=== PATIENT | male | born 1980 | race American Indian/Alaskan Native ===

== ENCOUNTER 2016-06-13 14:16 | Emergency (ER) | payer OTHER ==
[2016-06-13] MEDS ORDERED: NACL 0.9% 1000 ML 1,000 ML IV ONE (15:22)
[2016-06-13] MEDS ORDERED: ZOFRAN IV ONE (15:22)
[2016-06-13] MEDS ORDERED: TORADOL IV ONE (15:22)
--- NOTE | 2016-06-13 15:28 | Emergency Department Report ---
ED Abdominal Pain HPI - General Chief Complaint: Upper Respiratory Infection Stated Complaint: N/V/D Time Seen by Provider: 06/13/16 15:15 Source: patient Mode of arrival: Ambulatory Limitations: No Limitations - History of Present Illness Initial Comments: Pt reports abdominal cramping, n/v/d, and chills x 3 days. No URI sx. Reports generalized body aches. MD Complaint: abdominal pain -: days(s) (3) Location: diffuse Migration to: no migration Quality: cramping Consistency: constant Improves With: nothing Worsens With: nothing Associated Symptoms: nausea, vomiting, diarrhea, chills - Related Data Previous Rx's Medication Instructions Recorded Last Taken Type Dicyclomine [Bentyl] 20 mg PO TID #15 tablet 06/13/16 Unknown Rx Promethazine [Phenergan TAB] 25 mg PO Q6HR PRN #14 tab 06/13/16 Unknown Rx Allergies Allergy/AdvReac Type Severity Reaction Status Date / Time kiwi AdvReac Swelling Verified 04/13/15 16:46 ED Review of Systems ROS: Stated complaint: N/V/D Other details as noted in HPI Comment: All other systems reviewed and negative Constitutional: chills, fever Eyes: denies: eye pain, eye discharge, vision change ENT: denies: ear pain, throat pain Respiratory: denies: cough, shortness of breath, wheezing Cardiovascular: denies: chest pain, palpitations Endocrine: no symptoms reported Gastrointestinal: abdominal pain, nausea, vomiting, diarrhea Genitourinary: denies: urgency, dysuria Musculoskeletal: denies: back pain, joint swelling, arthralgia Skin: denies: rash, lesions Neurological: denies: headache, weakness, paresthesias Psychiatric: denies: anxiety, depression Hematological/Lymphatic: denies: easy bleeding, easy bruising ED Past Medical Hx - Past Medical History Hx Hypertension: Yes - Surgical History Past Surgical History?: No - Social History Smoking Status: Current Every Day Smoker Substance Use Type: Marijuana - Medications Home Medications: Home Medications Medication Instructions Recorded Confirmed Last Taken Type Dicyclomine [Bentyl] 20 mg PO TID #15 tablet 06/13/16 Unknown Rx Promethazine [Phenergan TAB] 25 mg PO Q6HR PRN #14 tab 06/13/16 Unknown Rx ED Physical Exam - General Limitations: No Limitations General appearance: alert, in no apparent distress - Head Head exam: Present: atraumatic, normocephalic - Eye Eye exam: Present: normal appearance, PERRL, EOMI - ENT ENT exam: Present: mucous membranes dry - Neck Neck exam: Present: normal inspection - Respiratory Respiratory exam: Present: normal lung sounds bilaterally. Absent: respiratory distress, wheezes - Cardiovascular Cardiovascular Exam: Present: regular rate, normal rhythm. Absent: systolic murmur, diastolic murmur, rubs, gallop - GI/Abdominal GI/Abdominal exam: Present: soft, tenderness (mild generalized), normal bowel sounds. Absent: distended, guarding, rebound - Rectal Rectal exam: Present: deferred - Extremities Exam Extremities exam: Present: normal inspection - Back Exam Back exam: Present: normal inspection - Neurological Exam Neurological exam: Present: alert, oriented X3 - Psychiatric Psychiatric exam: Present: normal affect, normal mood - Skin Skin exam: Present: warm, dry, intact, normal color. Absent: rash ED Course Vital Signs 06/13/16 06/13/16 14:38 16:04 Temperature 99.3 F Pulse Rate 99 H Respiratory 20 18 Rate Blood Pressure 125/77 O2 Sat by Pulse 99 Oximetry - Reevaluation(s) Reevaluation #1: 06/13/16 18:22 Improved. tolerating PO. Abd SNTND. NAD, stable for d/c. ED Medical Decision Making - Lab Data Result diagrams: 06/13/16 15:32 06/13/16 15:32 - Medical Decision Making Pt presents with sx of viral gastroenteritis. Fluids given, tolerating PO. Follow up/return precautions given. - Differential Diagnosis viral syndrome, gastroenteritis Critical care attestation.: If time is entered above; I have spent that time in minutes in the direct care of this critically ill patient, excluding procedure time. ED Disposition Clinical Impression: Nausea vomiting and diarrhea Disposition: DISCHARGED TO HOME OR SELFCARE Is pt being admited?: No Condition: Stable Instructions: Acute Nausea and Vomiting (ED), Abdominal Pain (ED) Prescriptions: Dicyclomine [Bentyl] 20 mg PO TID #15 tablet Promethazine [Phenergan TAB] 25 mg PO Q6HR PRN #14 tab PRN Reason: Nausea Referrals: PRIMARY CARE, [Primary Care Provider] - 3-5 Days LIVIA FRANKLIN MD [Staff Physician] - 3-5 Days Time of Disposition: 18:24
[2016-06-13 15:49] LABS: Basophils % (Auto) 0.2 % (0.0-1.8); Eosinophils % (Auto) 0.1 % (0.0-4.3); Hematocrit 43.5 % (35.5-45.6); Hemoglobin 14.8 gm/dl (11.8-15.2); Mean Corpuscular HGB Conc 34 % (32-34); Mean Corpuscular Hemoglobin 32 pg (28-32); Mean Corpuscular Volume 94 fl (84-94); Platelet Count 190 K/mm3 (140-440); Red Blood Count 4.61 M/mm3 (3.65-5.03); White Blood Count 7.2 K/mm3 (4.5-11.0)
[2016-06-13] MEDS ORDERED: BENTYL PO ONE (16:30)
[2016-06-13 17:19] LABS: Alanine Aminotransferase 27 units/L (7-56); Albumin 4.1 g/dL (3.9-5); Albumin/Globulin Ratio 0.9 %; Alkaline Phosphatase 116 units/L (35-129); Anion Gap 21 mmol/L; BUN/Creatinine Ratio 9.16; Bilirubin,Total 0.6 mg/dL (0.1-1.2); Blood Urea Nitrogen 11 mg/dL (9-20); Carbon Dioxide 21 mmol/L (22-30); Chloride 94.4 mmol/L (98-107); Glucose 99 mg/dL (75-100); Lipase 29 units/L (13-60); Potassium 3.3 mmol/L (3.6-5.0); Sodium 133 mmol/L (137-145); Total Protein 8.6 g/dL (6.3-8.2)
[2016-06-13] MEDS ORDERED: ZOFRAN ODT PO ONE (18:22)
[2016-06-13] MEDS ORDERED: K-DUR PO ONE (18:22)
[2016-06-13 19:02] VITALS: BP 130/81
== END 2016-06-13 19:02 | disposition home or self-care (01) ==
LOC: ED 14:16
DX: R11.2 Nausea with vomiting, unspecified (principal); R19.7 Diarrhea, unspecified; I10 Essential (primary) hypertension; F17.200 Nicotine dependence, unspecified, uncomplicated; F12.10 Cannabis abuse, uncomplicated
CPT/HCPCS: 36415; 80053; 83690; 85025; 87400; 96361; 96374; 96375; 99283; J1885; J2405; J7030; Q0162